=== PATIENT | male | born 1960 | race American Indian/Alaskan Native ===

== ENCOUNTER 2019-01-28 07:25 | Day surgery (SDC) | payer OTHER ==
--- NOTE | 2019-01-28 08:27 | Anesthesia Day of Surgery ---
Anesthesia Day of Surgery - Day of Surgery Patient Examined: Yes Patient H&P Reviewed: Yes Patient is NPO: Yes
--- NOTE | 2019-01-28 08:28 | Anesthesia Consultation ---
Anesthesia Consult and Med Hx Date of service: 01/28/19 - Airway Anesthetic Teeth Evaluation: Chipped ROM Head & Neck: Adequate Mental/Hyoid Distance: Adequate Mallampati Class: Class III Intubation Access Assessment: Possibly Difficult - Pre-Operative Health Status ASA Pre-Surgery Classification: ASA3 Proposed Anesthetic Plan: MAC - Pulmonary Hx Smoking: No Hx Sleep Apnea: Yes (CPAP)
[2019-01-28] MEDS ORDERED: NACL 0.9% 1000 ML 1,000 ML IV SCH (09:00)
[2019-01-28] MEDS ORDERED: DIPRIVAN 10 MG/ML IV ONE ×2 (09:01)
[2019-01-28] MEDS ORDERED: XYLOCAINE TOPICAL 2% 5ML ONE (09:03)
--- NOTE | 2019-01-28 09:31 | Procedure Note ---
Date of procedure: 01/28/19 Pre-op diagnosis: Colon Polyp Screening Post-op diagnosis: other (No Colon Polyps noted/ Few Scattered Diverticuli/ Non- Specific Sigmoid Colitis/ Mild to Moderate Internal Hemorrhoid)
--- NOTE | 2019-01-28 09:53 | Operative Report ---
INDICATIONS: This is a 58-year-old -[place] male with an underlying history of arthritis, who had a colonoscopy done as part of colon polyp screening. On occasion, he has also noticed some bleeding. Procedure was done after getting informed consent with MAC anesthesia. Initial rectal exam was unremarkable. Instrument was passed through the rectum onto the cecum, which was identified with ileocecal valve and the appendiceal orifice. Visualization was fair to good. The scope was retroflexed in the cecum and no additional pathology was noted. The cecum, ascending colon and most of the transverse colon showed normal mucosa. In the distal transverse colon and the left colon and there were a few minor diverticula noted and there was some possible evidence of nonspecific colitis noted in the sigmoid. Biopsies were taken from that area and the rectum showed mild to moderate internal hemorrhoids on the retroverted view. ASSESSMENT: Colon polyp screening, no colon polyps noted. Few scattered diverticula noted in the left as well as in the distal transverse colon. Nonspecific sigmoid colitis. Biopsies taken. Mild to moderate internal hemorrhoid. There was minimal bleeding from the biopsy sites. No complications associated with the procedure. The patient will be asked to avoid aspirin and aspirin-related products for the next few days and resume other medications to use [id number] antihemorrhoidal medication and follow up in the office in 1-2 weeks' time. Procedure was done in the GI lab with assistance of the GI lab team, which included RN, lon Denny Regina as well as the assistance of anesthesia. JOB# [id number] JORDYN/JOVANNY
[2019-01-28 10:02] VITALS: BP 111/73
[2019-01-28] MEDS ORDERED: WATER FOR IRRIG STERILE IR ONE (10:28)
[2019-01-28] MEDS ORDERED: XYLOCAINE MPF 2% ONE (13:00)
== END 2019-01-28 07:26 | disposition home or self-care (01) ==
LOC: GIO 07:25
DX: Z12.11 Encounter for screening for malignant neoplasm of colon (principal); K63.89 Other specified diseases of intestine; K57.30 Diverticulosis of large intestine without perforation or abscess without bleeding; K64.8 Other hemorrhoids; H40.9 Unspecified glaucoma; G47.30 Sleep apnea, unspecified; Z96.651 Presence of right artificial knee joint; Z98.890 Other specified postprocedural states
CPT/HCPCS: 45380; 88305; J2704; J7030